=== PATIENT | male | born 1975 | race Caucasian/White ===

== ENCOUNTER → 2018-01-01 11:35 | Outpatient (CLI) | payer OTHER, SELFPAY ==
[2018-01-01 13:52] LABS: Cholesterol 308 mg/dL (200); Glucose 100 mg/dL (74-106); High Density Lipoprotein 38 mg/dL; Triglycerides 362 mg/dL; Uric Acid 8.3 mg/dL (3.5-7.2); Very Low Density Lipoprotein 72 mg/dL (5-40)
== END ==
PROVIDERS: Family Provider Family Medicine; PCP Family Medicine; Visit Provider Family Medicine
DX: M10.9 Gout, unspecified (principal); Z13.1 Encounter for screening for diabetes mellitus; Z13.220 Encounter for screening for lipoid disorders
CPT/HCPCS: 36415; 80061; 82947; 84550

== ENCOUNTER → 2018-12-31 15:11 | Outpatient (CLI) | payer OTHER, SELFPAY ==
[2015-03-06 10:38] VITALS: BMI 28.5
== END ==
PROVIDERS: Family Provider Family Medicine; PCP Family Medicine; Referring Provider Otolaryngology Otolaryngology/Facial Plastic Surgery; Visit Provider Otolaryngology Otolaryngology/Facial Plastic Surgery
DX: J02.9 Acute pharyngitis, unspecified (principal)
CPT/HCPCS: 87070

== ENCOUNTER 2019-01-22 06:52 | Day surgery (SDC) | payer OTHER, SELFPAY ==
[2019-01-08 13:22] VITALS: BMI 30.2
[2019-01-22 07:11] VITALS: BP 140/86; PULSE 77; RESP 14; TEMP 36.6; O2SAT 99; BMI 29.9
--- NOTE | 2019-01-22 08:00 | IMM_PTH ---
PATIENT: DUSTIN SWEENEY Jr. LOC: EN U#:[id number] AGE/SX: 43/M ROOM: RE01/22/[address]: Dr. Bhavik Varela MD : 1975 BED: DIS: 01/22/2019 SPEC #: [id number] RECD: 01/22/19 12:17 STATUS: BECKIE FRANCIS #: [id number] YULIA: 01/22/19 08:[address]: Bhavik Varela DEPT: IMMUNOHISTOCHEMISTRY RECD BY: Dora Diaz ENTERED: 01/22/19 12:18 SP TYPE: IMMUNO OTHR DR: Dr. Bhavik Lim MD Tissues: A - Stomach, NOS Procedures: H Pylori (initial) PHYSICIAN & INSTITUTION [place] [id number] SPECIMEN INFORMATION: Tissue Source: A - Biopsy gastric antrum Clinical Info: GERD Specimen Number: [id number] CPT code: 47289 METHODOLOGY: Deparaffinized sections of prefer/formalin-fixed tissue or PAP/DQ stained slides are incubated with monoclonal/polyclonal antibodies/oligonucleotide probes. Localization is made via biotin free immunoperoxidase method. Appropriate controls are performed and reacted as expected. Results on target cell population are indicated in the following table: RESULTS: ANTIBODY / CLONE RESULT Block A H Pylori (polyclonal) negative These tests were developed and their performance characteristics determined by [facility]. They may not have been cleared or approved by the U.S. Food and Drug Administration. The FDA has determined that such clearance or approval is not necessary. INTERPRETATION: A. Gastric antrum, biopsy: Negative for Helicobacter pylori organisms. SJ:ruth 01/23/19
--- NOTE | 2019-01-22 08:00 | EGD_PTH ---
PATIENT: DUSTIN SWEENEY Jr. LOC: EN U#:[id number] AGE/SX: 43/M ROOM: RE01/22/[address]: Dr. Bhavik Varela MD : 1975 BED: DIS: 01/22/2019 SPEC #: [id number] RECD: 01/22/19 09:08 STATUS: BECKIE FRANCIS #: [id number] YULIA: 01/22/19 08:[address]: Bhavik Varela DEPT: SURGICAL PATHOLOGY RECD BY: Kameron Almazan ENTERED: 01/22/19 11:40 SP TYPE: EGD BIOPSY OTHR DR: Dr. Bhavik Lim MD Tissues: A - Gastric mucous membrane B - Esophagus, NOS C - Esophagus, NOS Procedures: PAS Fungus (control) Special Stain Group II Special Stain Group I Surgery Specimen Level IV Alcian Blue/PAS (control) HEADER OPERATION: EGD (MAC) PRE-OP DIAGNOSIS: GERD TISSUE SUBMITTED: A - Biopsy gastric antrum, H. pylori and path, B - Biopsy distal esophagus, C - Biopsy mid esophagus MICROSCOPIC DIAGNOSIS A. Gastric antrum, biopsy: Mild gastritis. See microscopic description and comment. B. Distal esophagus, biopsy: Fragments of gastroesophageal mucosa with mild chronic inflammation. Intestinal metaplasia (goblet cell metaplasia) is not identified. See comment. C. Mid esophagus, biopsy: Fragments of squamous epithelium with mild acute and chronic inflammation. Special stain for fungi is negative for organisms; matched control is appropriate. SJ:ruth 01/23/19 COMMENT A. The results of immunohistochemistry for Helicobacter pylori will be reported separately ([id number]). B. The specimen predominantly consists of squamous mucosa. Alcian blue/PAS stain with matched control is used in the evaluation of the specimen. MICROSCOPIC DESCRIPTION Slides are reviewed. A. The specimen shows fragments of gastric mucosa with chronic inflammatory cell infiltrates in the lamina propria consisting of lymphocytes and plasma cells, consistent with mild chronic gastritis. GROSS DESCRIPTION A - Received in fixative is one container labeled with the patient's name and designated gastric antrum. The specimen consists of one irregular fragment of light tang soft tissue that measures 0.7 x 0.3 x 0.1 cm. The specimen is totally submitted in one cassette. B - Received in fixative is one container labeled with the patient's name and designated distal esophagus. The specimen consists of two irregular fragments of light tang soft tissue that in aggregate measure 0.6 x 0.6 x 0.1 cm. The specimen is totally submitted in one cassette. C - Received in fixative is one container labeled with the patient's name and designated mid esophagus. The specimen consists of two irregular fragments of light tang soft tissue that in aggregate measure 0.5 x 0.2 x <0.1 cm. The specimen is totally submitted in one cassette. / AM:ruth 01/22/19 TC:5 CPT: 12406 x3, 52758,45253
[2019-01-22 08:30] VITALS: BP 123/70; BP 140/86; PULSE 73; RESP 16; TEMP 36.8; O2SAT 93
--- NOTE | 2019-01-22 08:33 | OP.ENDO_ITS ---
01/22/2019 Chris Francisco [address] [place] [address] Re : Upper GI endoscopy procedure for Cynthia Lopez Dear Dr. Francisco This procedure was performed on Tuesday, January 22, 2019. My impressions and recommendations are as follows: Impressions : - Normal esophagus. Biopsied distally and mid. - Erythematous mucosa in the antrum. Biopsied. - Normal examined duodenum. - Z-line regular, 42 cm from the incisors. Recommendations : - Discharge patient to home. - Resume previous diet. - Continue present medications. - Telephone my office for pathology results in 1 week. The findings were very mild and do not seem to well correlate with complaints of severe sore throat. Enlarged tonsils were noted during the procedure as well. My findings are described in the full procedure note, which is enclosed. If I can be of further assistance, please feel free to contact me at Doctor phone number(s): Work: . Sincerely, Bhavik Varela MD 01/22/2019 8:33:32 AM This report has been signed electronically.
[2019-01-22 08:35] VITALS: BP 121/67; BP 140/86; PULSE 67; RESP 16; O2SAT 93
[2019-01-22 08:40] VITALS: BP 125/68; BP 140/86; PULSE 68; RESP 16; O2SAT 95
[2019-01-22 08:45] VITALS: BP 118/70; BP 140/86; PULSE 61; RESP 16; TEMP 36.8; O2SAT 96
[2019-01-22 09:01] VITALS: BP 140/86
== END 2019-01-22 09:12 | disposition home or self-care (01) ==
LOC: EN 06:52 → AC 06:56
PROVIDERS: Family Provider Family Medicine; PCP Family Medicine; Referring Provider Family Medicine; Visit Provider Surgery
PROC: 0DJ08ZZ Inspection of Upper Intestinal Tract, Via Natural or Artificial Opening Endoscopic (ICD-10-PCS; CPT 43235; principal; 2019-01-22 07:55)
DX: K29.70 Gastritis, unspecified, without bleeding (principal); K21.0 Gastro-esophageal reflux disease with esophagitis; E66.3 Overweight; Z68.30 Body mass index [BMI] 30.0-30.9, adult; Z87.442 Personal history of urinary calculi
CPT/HCPCS: 43239; 88305; 88312; 88313; 88342; J7120

== ENCOUNTER 2019-03-05 07:50 | Day surgery (SDC) | payer OTHER, SELFPAY ==
[2019-03-05 08:26] VITALS: BP 134/84; PULSE 69; RESP 18; TEMP 36.4; O2SAT 98; BMI 30.8
--- NOTE | 2019-03-05 10:15 | TONS_PTH ---
PATIENT: DUSTIN SWEENEY Jr. LOC: [facility] [place] U#:[id number] AGE/SX: 43/M ROOM: RE03/05/[address]: Dr. Chris Francisco MD : 1975 BED: DIS: 03/05/2019 SPEC #: [id number] RECD: 03/05/19 13:03 STATUS: BECKIE FRANCIS #: [id number] YULIA: 03/05/19 10:[address]: Chris Francisco DEPT: SURGICAL PATHOLOGY RECD BY: Kameron Almazan ENTERED: 03/05/19 13:49 SP TYPE: TONSILS OTHR DR: Dr. Bhavik Lim MD Tissues: Tonsil, NOS Procedures: Surgery Specimen Level III HEADER OPERATION: Tonsillectomy PRE-OP DIAGNOSIS: Chronic tonsillitis TISSUE SUBMITTED: Tonsils, right tonsil tie MICROSCOPIC DIAGNOSIS Right and left tonsils, bilateral tonsillectomies: Benign lymphoid follicular hyperplasia, consistent with chronic tonsillitis. Organisms consistent with actinomyces. AM:ruth 03/06/19 MICROSCOPIC DESCRIPTION Slides are reviewed. GROSS DESCRIPTION Received is one container labeled with the patient's name and designated tonsils - tie on right are two tonsils that in aggregate weigh 6.3 gm. The right tonsil has a pin-tie on it and measures 3 x 1.5 x 1 cm. The left tonsil measures 3 x 2 x 1 cm. Both tonsils are similar in appearance. The external surfaces are pink-tang, smooth, glistening and somewhat lobulated. Focally they are hemorrhagic, granular and bear cautery artifact. Serial cross sections through the tonsils reveal normal tonsillar architecture. Sections are submitted in two cassettes as follows: 1 - right tonsil, 2 - left tonsil. / SJ:ruth 03/05/19 TC:5 CPT: 24939 x2
--- NOTE | 2019-03-05 11:18 | PCM.OPRPT ---
Report of Operation Date of Procedure: 03/05/19 Pre-Operative Diagnosis: Chronic tonsillitis. Reactive hyperplasia of tonsillar tissue. Obstructive sleep apnea Post-Operative Diagnosis: Same Surgery/Procedure Performed:: Tonsillectomy Description of Surgical Findings:: Procedure tonsillectomy Anesthesia endotracheal general Procedure the patient was placed supine on the operating room table. After satisfactory endotracheal general anesthesia been obtained sterile drapes were applied and the patient draped in the usual sterile manner. Brian-Porsha mouthgag was placed in the oral cavity and the tongue retracted anteriorly. Nasopharynx was examined and was noted to be clean. Both tonsillar tissue noted to be markedly hypertrophic. The left tonsil was held with tenaculum forceps and an incision made in the anterior tonsillar fold. The capsule was identified and the tonsil dissected inferiorly. At the base the tonsil was removed. Multiple bleeders were coagulated with the Bovie. The right tonsil was held with tenaculum forceps and an incision made in the anterior tonsillar fold. The capsule was identified and the tonsil dissected inferiorly. The base the tonsil was removed. After meticulous hemostasis had been obtained in both tonsil fossa the hypopharynx was suctioned the Brian Porsha mouthgag removed and the patient extubated and returned to the recovery room in satisfactory condition. Chris Francisco MD
[2019-03-05 11:40] VITALS: BP 134/84; BP 137/90; PULSE 56; RESP 14; TEMP 36.7; O2SAT 95
[2019-03-05 11:45] VITALS: BP 131/85; BP 134/84; PULSE 55; RESP 16; O2SAT 95
[2019-03-05 12:00] VITALS: BP 124/71; BP 134/84; PULSE 60; RESP 16; O2SAT 96
[2019-03-05 12:15] VITALS: BP 134/84; BP 137/90; PULSE 63; RESP 18; TEMP 36.9; O2SAT 98
[2019-03-05] MEDS: Acetaminophen 650 MG/20 ML UDC 1000 MG PO (12:51)
[2019-03-05 13:47] VITALS: BP 129/65; BP 134/84; PULSE 71; RESP 16; TEMP 36.4; O2SAT 98
== END 2019-03-05 13:48 | disposition home or self-care (01) ==
LOC: SDC 07:53 → AC 07:53
PROVIDERS: Family Provider Family Medicine; PCP Family Medicine; Referring Provider Otolaryngology Otolaryngology/Facial Plastic Surgery; Visit Provider Otolaryngology Otolaryngology/Facial Plastic Surgery
PROC: (CPT 42826; principal; 2019-03-05 10:00)
DX: J35.01 Chronic tonsillitis (principal); G47.33 Obstructive sleep apnea (adult) (pediatric); J34.2 Deviated nasal septum; J30.9 Allergic rhinitis, unspecified; R09.81 Nasal congestion; K21.9 Gastro-esophageal reflux disease without esophagitis; Z79.899 Other long term (current) drug therapy; Z87.442 Personal history of urinary calculi
CPT/HCPCS: 42826; 88304; J7120

== ENCOUNTER → 2020-01-03 | Outpatient (CLI) | payer OTHER, SELFPAY ==
--- NOTE | 2020-01-03 11:12 | MRI_ITS ---
STUDY: MR CHEST WITHOUT CONTRAST REASON FOR EXAM: Male, 44 years old. RIGHT pectoralis tear/pain TECHNIQUE: Standardized fat and water weighted pulse sequences were obtained in all 3 orthogonal planes. COMPARISON: None. FINDINGS: The visualized lungs are unremarkable. There is no demonstrated pleural abnormality. Normal heart and pericardium. Normal mediastinum. Normal hilar regions. Normal unenhanced pulmonary arteries. Normal aorta arch and descending thoracic aorta. Normal osseous structures. There is a full-thickness tear of the pectoralis major tendon retracted approximately 5 cm into the chest. Associated mild muscle strain of the lateral and posterior pectoralis major muscle with edema tracking superficially into the subcutaneous fat of the lateral chest wall and anterior shoulder. The pectoralis minor muscle and tendon appears intact. There is no demonstrated abnormality of the visualized upper abdomen. MRI/Chest without Contrast IMPRESSION: Full-thickness retracted tear of the right pectoralis major muscle with minor muscle strain and surrounding edema. Electronically Signed: Mann Patiño MD at 12:22 EDT Tel , Service support ,
== END | disposition home or self-care (01) ==
PROVIDERS: Referring Provider Physician Assistant Surgical; Visit Provider Physician Assistant Surgical
DX: M25.511 Pain in right shoulder (principal); S29.011A Strain of muscle and tendon of front wall of thorax, initial encounter
CPT/HCPCS: 71550

== ENCOUNTER → 2022-07-15 | Outpatient (CLI) | payer OTHER, SELFPAY ==
[2022-07-15 13:20] LABS: Uric Acid 8.9 mg/dL (3.5-7.2)
== END | disposition home or self-care (01) ==
LOC: LAB 11:19
PROVIDERS: PCP Family Medicine; Referring Provider Nurse Practitioner Family; Visit Provider Nurse Practitioner Family
DX: M10.9 Gout, unspecified (principal)
CPT/HCPCS: 36415; 84550

== ENCOUNTER → 2022-09-09 | Outpatient (CLI) | payer OTHER, SELFPAY ==
[2022-09-09 11:12] LABS: Uric Acid 7.9 mg/dL (3.5-7.2)
== END | disposition home or self-care (01) ==
LOC: LAB 10:08
PROVIDERS: PCP Family Medicine; Visit Provider Nurse Practitioner Family
DX: E79.0 Hyperuricemia without signs of inflammatory arthritis and tophaceous disease (principal)
CPT/HCPCS: 36415; 84550

== ENCOUNTER → 2022-11-04 | Outpatient (CLI) | payer OTHER, SELFPAY ==
[2022-11-04 13:32] LABS: Uric Acid 7.5 mg/dL (3.5-7.2)
== END | disposition home or self-care (01) ==
LOC: LAB 11:04
PROVIDERS: PCP Family Medicine; Referring Provider Nurse Practitioner Family; Visit Provider Nurse Practitioner Family
DX: E79.0 Hyperuricemia without signs of inflammatory arthritis and tophaceous disease (principal)
CPT/HCPCS: 36415; 84550

== ENCOUNTER → 2024-06-07 | Outpatient (CLI) | payer OTHER, SELFPAY ==
[2024-06-07 10:53] LABS: ALB/GLOB Ratio 1.1 RATIO (0.9-2.4); AST(SGOT) 26 U/L (15-37); Alanine Aminotransfer ALT/SGPT 37 U/L (16-61); Albumin, Serum 3.8 g/dL (3.2-5.0); Alkaline Phosphatase 102 U/L (45-117); Anion Gap 4 (5-15); BUN 11 mg/dL (7-18); BUN/Creat Ratio 8.8 RATIO (10-20); Calcium,Total 9.8 mg/dL (8.5-10.1); Chloride 106 mmol/L (98-107); Cholesterol 282 mg/dL (200); Creatinine, Serum 1.25 mg/dL (0.70-1.30); EST Glomerular Filtration Rate 66 mL/min (>60); Est Glom Filt Rate - Afr Amer 80 mL/min (>60); Globulin 3.5 g/dL (2.2-4.2); Glucose 114 mg/dL (74-106); High Density Lipoprotein 47 mg/dL; PSA,Total - Annual Screen 0.28 ng/mL (0.00-4.00); Potassium 4.3 mmol/L (3.5-5.1); Protein, Total 7.3 g/dL (6.4-8.2); Sodium Level 139 mmol/L (136-145); Triglycerides 197 mg/dL; Uric Acid 7.5 mg/dL (3.5-7.2); Very Low Density Lipoprotein 39 mg/dL (5-40)
== END | disposition home or self-care (01) ==
PROVIDERS: PCP Family Medicine; Referring Provider Family Medicine; Visit Provider Family Medicine
DX: Z12.5 Encounter for screening for malignant neoplasm of prostate (principal); Z13.1 Encounter for screening for diabetes mellitus; Z13.6 Encounter for screening for cardiovascular disorders; M10.9 Gout, unspecified
CPT/HCPCS: 36415; 80053; 80061; 84153; 84550; G0103

== ENCOUNTER → 2024-07-13 | Outpatient (CLI) | payer OTHER, SELFPAY ==
[2024-07-13 10:46] LABS: Uric Acid 6.8 mg/dL (3.5-7.2)
[2024-07-15 15:15] LABS: ALB/GLOB Ratio 1.2 RATIO (0.9-2.4); AST(SGOT) 28 U/L (15-37); Alanine Aminotransfer ALT/SGPT 36 U/L (16-61); Albumin, Serum 3.9 g/dL (3.2-5.0); Alkaline Phosphatase 107 U/L (45-117); Anion Gap 7 (5-15); BUN 12 mg/dL (7-18); Calcium,Total 9.6 mg/dL (8.5-10.1); Chloride 105 mmol/L (98-107); EST Glomerular Filtration Rate 69 mL/min (>60); Est Glom Filt Rate - Afr Amer 84 mL/min (>60); Globulin 3.2 g/dL (2.2-4.2); Glucose 108 mg/dL (74-106); Potassium 4.5 mmol/L (3.5-5.1); Protein, Total 7.1 g/dL (6.4-8.2); Sodium Level 138 mmol/L (136-145)
== END | disposition home or self-care (01) ==
LOC: LAB 08:14
PROVIDERS: PCP Family Medicine; Referring Provider Family Medicine; Visit Provider Family Medicine
DX: M10.9 Gout, unspecified (principal); Z79.899 Other long term (current) drug therapy
CPT/HCPCS: 36415; 80053; 84550

== ENCOUNTER → 2025-06-14 | Outpatient (CLI) | payer OTHER, SELFPAY ==
[2025-06-14 11:04] LABS: AST(SGOT) 27 U/L (<=37); Alanine Aminotransfer ALT/SGPT 27 U/L (<=46); Albumin, Serum 4.4 g/dL (3.5-5.0); Alkaline Phosphatase 99 U/L (40-129); Anion Gap 11 (5-15); BUN 12 mg/dL (4-19); BUN/Creat Ratio 10.3 RATIO (10-20); Calcium,Total 9.8 mg/dL (7.6-11.0); Carbon Dioxide 26.9 mmol/L (21.0-32.0); Chloride 102 mmol/L (98-108); Cholesterol 254 mg/dL (<=200); Globulin 2.6 g/dL (2.2-4.2); Glucose 113 mg/dL (70-99); Low Density Lipoprotein Calc. 178 mg/dL; PSA,Total - Annual Screen 1.77 ng/mL (0.02-4.00); Potassium 4.5 mmol/L (3.3-5.1); Triglycerides 136 mg/dL; Uric Acid 8.4 mg/dL (3.5-7.2); Very Low Density Lipoprotein 27 mg/dL (5-40); cholesterol:hdl ratio screen 5.19
== END | disposition home or self-care (01) ==
LOC: LAB 09:34
PROVIDERS: PCP Family Medicine; Referring Provider Family Medicine; Visit Provider Family Medicine
DX: Z12.5 Encounter for screening for malignant neoplasm of prostate (principal); E78.2 Mixed hyperlipidemia; Z13.1 Encounter for screening for diabetes mellitus; M10.9 Gout, unspecified
CPT/HCPCS: 36415; 80053; 80061; 84153; 84550; G0103